=== PATIENT | male | born 1945 | race Caucasian/White ===

== ENCOUNTER → 2017-06-10 | Outpatient (CLI) | payer OTHER | LOC: BHFA 13:00 | PROVIDERS: ATTEND Internal Medicine Cardiovascular Disease | DX: M79.609 Pain in unspecified limb (principal); M79.89 Other specified soft tissue disorders ==

== ENCOUNTER 2017-09-18 08:26 | Day surgery (SDC) | payer OTHER ==
--- NOTE | 2017-09-18 09:04 | PDANEPAE ---
ANE History of Present Illness 72 year old male for EGD and colonoscopy. ANE Past Medical History - Cardiovascular History Hx Hypertension: Yes Hx Arrhythmias: No Hx Chest Pain: No Hx Coronary Artery / Peripheral Vascular Disease: Yes Hx CHF / Valvular Disease: No Hx Palpitations: No Cardiovascular History Comment: cad. cabg 4v with quiroga 04/15/12. hyperlipidemia. htn - Pulmonary History Hx COPD: No Hx Asthma/Reactive Airway Disease: Yes Hx Recent Upper Respiratory Infection: No Hx Oxygen in Use at Home: Yes Hx Sleep Apnea: Yes Sleep Apnea Screening Result - Last Documented: Positive Pulmonary History Comment: Has not used Albuterol for "long time". consuelo positive instructed pt to bring cpap to hospital - Neurologic History Hx Cerebrovascular Accident: Yes Hx Seizures: No Hx Dementia: No Neurologic History Comment: peripheral neuropathy. restless leg syndrome - Endocrine History Hx Diabetes: No Hypothyroid: No Hyperthyroid: No Obesity: mild - Renal History Hx Renal Disorders: No - Liver History Hx Hepatic Disorders: No - Neurological & Psychiatric Hx Hx Neurological and Psychiatric Disorders: No - Cancer History Hx Cancer: Yes Cancer History Comment: lymphoma-Non Hodgkins - in remission - Congenital Disorder History Hx Congenital Disorders: No - GI History Hx Gastrointestinal Disorders: No Gastrointestinal History Comment: testing due to lymphoma - Other Health History Other Health History: OA fingers. bilateral hearing aides. wears glasses - Chronic Pain History Chronic Pain: Yes (Feet) - Surgical History Prior Surgeries: L total knee 08-19-16. cabg x4 with quiroga 04/15/2012. carotid endarterectomy. eye surgery. bilateral hip arthroplasty. fonseca neurom excistion ANE Review of Systems Review of systems is: negative Review of Systems: - Exercise capacity Exercise capacity: >=4 METS METS (RN): 4 METS ANE Patient History - Allergies Allergies/Adverse Reactions: lactose intolerant Allergy (Intermediate, Uncoded 08/28/16 10:11) Diarrhea - Home Medications Home medications: home medication list seen and reviewed Home Medications: buPROPion XL [Wellbutrin 150mg XL] 300 mg PO DAILY 04/12/12 [Last Taken 05/17/12 ] Metoprolol Tartrate [Lopressor 25 mg (*)] 25 mg PO DAILY 05/17/12 [Last Taken 08:00] Gabapentin [Neurontin 300 MG (*)] 900 mg PO BID 03/29/14 [Last Taken Unknown] Losartan Potassium [Cozaar 50 mg (*)] 100 mg PO DAILY 03/29/14 [Last Taken Unknown] Fluticasone/Salmeter 500/50Mcg [Advair 500/50 (*)] 1 puffs IH BID 07/23/14 [ Last Taken Unknown] Atorvastatin Calcium [Lipitor 40 mg (*)] 80 mg PO DAILY 08/02/16 [Last Taken Unknown] clonazePAM [klonoPIN (*)] 2 mg PO HS 08/02/16 [Last Taken Unknown] Proair Hfa 08/19/17 [Last Taken Unknown] - NPO status NPO Status: no food or drink >8 hours - Anes Hx Anes Hx: no prior problems - Smoking Hx Smoking Status: Never smoked - Alcohol Use Alcohol Use: None - Family Anes Hx Family Anes Hx: neg - N/A Family Hx Anesthesia Complications: none ANE Labs/Vital Signs - Vital Signs Vital Signs: reviewed preoperatively; see RN documention for details Height: 167.64 cm Weight: 91.172 kg ANE Physical Exam - Airway Neck exam: FROM Mallampati Score: Class 3 Mouth exam: small mouth opening - Pulmonary Pulmonary: no respiratory distress - Cardiovascular Cardiovascular: regular rate and rhythym - ASA Status ASA Status: III ANE Anesthesia Plan Anesthesia Plan: GA with mask Total IV Anesthesia: Yes
[2017-09-18] MEDS ORDERED: LIDOCAINE 1% 2 ML INJ ID PRN (09:13)
[2017-09-18] MEDS ORDERED: LR 1,000 ML IV ONE (09:13)
[2017-09-18 09:23] VITALS: PULSE 60
--- NOTE | 2017-09-18 10:01 | PDGENHP ---
History and Physical - Chief Complaint screening colon, hx of lymphoma - History of Present Illness Patient due for colon cancer screening with colonoscopy. Upper endoscopy indicated to evaluate for UGI evidence of lymphoma. History Information - Allergies/Home Medication List Allergies/Adverse Reactions: lactose intolerant Allergy (Intermediate, Uncoded 08/28/16 10:11) Diarrhea Home Medications: buPROPion XL [Wellbutrin 150mg XL] 300 mg PO DAILY 04/12/12 [Last Taken 05/17/12 ] Metoprolol Tartrate [Lopressor 25 mg (*)] 25 mg PO DAILY 05/17/12 [Last Taken 08:00] Gabapentin [Neurontin 300 MG (*)] 900 mg PO BID 03/29/14 [Last Taken Unknown] Losartan Potassium [Cozaar 50 mg (*)] 100 mg PO DAILY 03/29/14 [Last Taken Unknown] Fluticasone/Salmeter 500/50Mcg [Advair 500/50 (*)] 1 puffs IH BID 07/23/14 [ Last Taken Unknown] Atorvastatin Calcium [Lipitor 40 mg (*)] 80 mg PO DAILY 08/02/16 [Last Taken Unknown] clonazePAM [klonoPIN (*)] 2 mg PO HS 08/02/16 [Last Taken Unknown] Proair Hfa 08/19/17 [Last Taken Unknown] I have personally reviewed and updated: family history, medical history, social history, surgical history - Social History Smoking Status: Never smoked Alcohol Use: None Review of Systems Review of Systems: ROS: 10pt was reviewed & negative except for what was stated in HPI & below Physical Exam Physical Exam: Constitutional: no apparent distress Eyes: PERRL Ears, Nose, Mouth, Throat: moist mucous membranes Cardiovascular: regular rate and rhythym Respiratory: no respiratory distress Gastrointestinal: normoactive bowel sounds Skin: warm Musculoskeletal: full muscle strength Neurologic: AAOx3 Assessment & Plan Assessment: 1. Screening 2. R/O lymphoma Plan: 1. Colonoscopy 2. EGD
[2017-09-18] MEDS ORDERED: PROPOFOL/EMULSION 500 MG/50 ML BOTTLE IV ONE (10:05)
[2017-09-18] MEDS ORDERED: LR 500 ML IV PRN (10:21)
[2017-09-18] MEDS ORDERED: ONDANSETRON 4 MG/2 ML VIAL IVP PRN (10:21)
[2017-09-18] MEDS ORDERED: fentaNYL 100 MCG/2 ML INJ IVP PRN (10:21)
[2017-09-18] MEDS ORDERED: NALOXONE HCL 0.4 MG/ML INJ IVP PRN (10:21)
--- NOTE | 2017-09-18 10:35 | GIREPORT ---
[facility] Surgical Services - Endoscopy Department Patient Name: Jason Trevino Procedure Date: 09/18/2017 10:10 AM Patient Type: Outpatient Attending MD/ ER Physician: Aneudy Mack MD Procedure: Upper GI endoscopy Indications: Epigastric abdominal pain Providers: Aneudy Mack MD Medicines: Sedation Administered by an Anesthesia Professional Complications: No immediate complications. Description of Procedure: After obtaining informed consent, the endoscope was passed under direct vision. Throughout the procedure, the patient's blood pressure, pulse, and oxygen saturations were monitored continuously. The Endoscope was intro duced through the mouth, and advanced to the second part of duodenum. [facility] endoscopy was accomplished without difficulty. The patient tolerated th e procedure well. Findings: The Z-line was irregular and was found at the gastroesophageal junction . Biopsies were taken with a cold forceps for histology. Diffuse mild inflammation characterized by congestion (edema) and eryth gagandeep was found in the entire examined stomach. Biopsies were taken with a co ld forceps for histology. The examined duodenum was normal. Biopsies were taken with a cold force ps for histology. Estimated Blood Loss: Estimated blood loss: none. Post Op Diagnosis: - Z-line irregular, at the gastroesophageal junction. Biopsied. - Gastritis. Biopsied. - Normal examined duodenum. Biopsied. Recommendation: - Written discharge instructions were provided to the patient. - The signs and symptoms of potential delayed complications were discus sed with the patient. - Patient has a contact number available for emergencies. - Return to normal activities tomorrow. - Resume previous diet. - Continue present medications. - Await pathology results. Attending Participation: I personally performed the entire procedure. Aneudy Mack MD Aneudy Mack MD 09/18/2017 10:34:54 AM This report has been signed electronicallyDaus Frederick MD Number of Addenda: 0 Note Initiated On: 09/18/2017 10:10 AM [email or web address]
--- NOTE | 2017-09-18 10:37 | GIREPORT ---
[facility] Surgical Services - Endoscopy Department Patient Name: Jason Trevino Procedure Date: 09/18/2017 10:20 AM Patient Type: Outpatient Attending / ER Physician: Aneudy Mack MD Procedure: Colonoscopy Indications: Screening for colorectal malignant neoplasm Providers: Aneudy Mack MD Medicines: Sedation Administered by an Anesthesia Professional Complications: No immediate complications. Description of Procedure: After obtaining informed consent, the scope was passed under direct vis ion. Throughout the procedure, the patient's blood pressure, pulse, and oxyg en saturations were monitored continuously. The Colonoscope with irrigatio n channel was introduced through the anus and advanced to the cecum, identified by appendiceal orifice and ileocecal valve. The colonoscopy was performed without difficulty. The patient tolerated the procedure well. The quality of the bowel preparation was good. The ileocecal valve, appendi ceal orifice, and rectum were photographed. Findings: The entire examined colon appeared normal. One small submucosal nodule was found in the sigmoid colon. Biopsies we re taken with a cold forceps for histology. Estimated Blood Loss: Estimated blood loss: none. Estimated blood loss: none. Post Op Diagnosis: - The entire examined colon is normal. - Submucosal nodule in the sigmoid colon. Biopsied. Suspect sumucosal l ipoma. Recommendation: - Written discharge instructions were provided to the patient. - The signs and symptoms of potential delayed complications were discus sed with the patient. - Patient has a contact number available for emergencies. - Return to normal activities tomorrow. - Repeat colonoscopy in 10 years for screening purposes. - Await pathology results. Attending Participation: I personally performed the entire procedure. Aneudy Mack MD Aneudy Mack MD 09/18/2017 10:36:51 AM This report has been signed electronicallyDaus Frederick MD Number of Addenda: 0 Note Initiated On: 09/18/2017 10:20 AM Total Procedure Duration Time 0 hours 13 minutes 23 seconds [email or web address]
[2017-09-18 10:46] VITALS: TEMP 97.3
[2017-09-18 11:36] VITALS: BP 148/73; RESP 20; O2SAT 98
--- NOTE | 2017-09-18 16:26 | POSTANESTH ---
Post Anesthetic Evaluation Cardiovascular Status: Normal, Stable, Similar to Pre-Op Cond Respiratory Status: Normal, Stable, Similar to Pre-op Cond. Level of Consciousness/Mental Status: Can Participate in Eval, Alert and Oriented Pain Control: Adequate, Prn Tx Ordered Nausea/Vomiting Control: Adequate, Prn Tx Ordered Complications Possibly Related to Anesthesia: None Noted
== END 2017-09-18 11:53 | disposition home or self-care (01) ==
LOC: FSGY 08:26
PROVIDERS: ATTEND Internal Medicine Gastroenterology
DX: Z12.11 Encounter for screening for malignant neoplasm of colon (principal); K22.9 Disease of esophagus, unspecified; C85.90 Non-Hodgkin lymphoma, unspecified, unspecified site; I25.10 Atherosclerotic heart disease of native coronary artery without angina pectoris; G47.33 Obstructive sleep apnea (adult) (pediatric); J45.909 Unspecified asthma, uncomplicated; E78.5 Hyperlipidemia, unspecified; I10 Essential (primary) hypertension; G25.81 Restless legs syndrome; G62.9 Polyneuropathy, unspecified; Z86.73 Personal history of transient ischemic attack (TIA), and cerebral infarction without residual deficits; Z95.1 Presence of aortocoronary bypass graft; Z96.652 Presence of left artificial knee joint; Z96.643 Presence of artificial hip joint, bilateral
CPT/HCPCS: J2704

== ENCOUNTER → 2018-07-09 | Outpatient (CLI) | payer OTHER | LOC: CIMAGING 12:40 | PROVIDERS: ATTEND Internal Medicine | DX: Z03.89 Encounter for observation for other suspected diseases and conditions ruled out (principal); Z86.79 Personal history of other diseases of the circulatory system | CPT/HCPCS: 93880-PO ==

== ENCOUNTER 2018-09-26 13:40 | Emergency (ER) | payer OTHER ==
--- NOTE | 2018-09-26 15:00 | EDPHY ---
H & P Stated Complaint: dizziness Time Seen by Provider: 09/26/18 13:55 HPI/ROS: This patient had an episode of dizziness 11:00 a.m. During an argument with his while driving. He describes this as primarily lightheadedness. He has had these"dizzy attacks"on off for the past 2 years. This episode was slightly worsened some of them prompting his visit for workup. The dizziness is now nearly resolved. He denies any other significant acute symptoms. Notes no exacerbating factors. He is accompanied by his son who drove him in by private vehicle. ROS: Constitutional: No fevers or chills HEENT: Mild coryza over the past couple days. Otherwise negative except chronic tinnitus Neuro: No headache. No focal numbness tingling weakness other than mild chronic symptoms post stroke and chronic paresthesias to lower extremities from neuropathy. No acute confusion Pulmonary: No dyspnea or cough. Cardiovascular: No heart palpitations. He has chronic leg edema with no recent change. He denies any posterior calf pain GI: No abdominal pain, nausea or bowl read. Reports normal bowel movements. : No symptoms Integumentary: No pallor or diaphoresis. No rash. Endocrine: No polyuria or polydipsia. 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 VT/quadruple cardiac bypass, 2012. TIA's. torn retina, peripheral neuropathy. Chronic dependent edema bilateral lower extremities - Social History Smoking Status: Never smoked Alcohol Use: Rarely Drug Use: None - Physical Exam Exam: General Appearance: Alert, no distress. Eyes: Pupils equal and round no pallor or injection. ENT, Mouth: Mucous membranes moist. Neck: Supple Respiratory: There are no retractions, lungs are clear to auscultation. Cardiovascular: Regular rate and rhythm. Gastrointestinal: Abdomen is soft and nontender, no masses, bowel sounds normal. Neurological: GCS 15. Cranial nerves 2-12 grossly intact. Head movement does not elicit significant vertiginous symptoms. Appreciate no nystagmus. Skin: Warm and dry, no rashes. Musculoskeletal: Neck is supple nontender. Extremities are symmetrical, full range of motion. Psychiatric: Mood and affect are normal DIFFERENTIAL DIAGNOSIS: After history and physical exam differential diagnosis was considered for anxiety, peripheral vertigo, pulmonary embolism, myocardial ischemic disease Constitutional: Initial Vital Signs Temperature (C) 37.2 C 09/26/18 13:51 Heart Rate 70 09/26/18 13:51 Respiratory Rate 16 09/26/18 13:51 Blood Pressure 155/82 H 09/26/18 13:51 O2 Sat (%) 92 09/26/18 13:51 O2 Delivery Mode Room Air Allergies/Adverse Reactions: lactose intolerant Allergy (Intermediate, Uncoded 08/28/16 10:11) Diarrhea Home Medications: Medication Instructions Recorded buPROPion XL [Wellbutrin 150mg XL] 300 mg PO DAILY 04/12/12 Metoprolol Tartrate [Lopressor 25 25 mg PO DAILY 05/17/12 mg (*)] Gabapentin [Neurontin 300 MG (*)] 900 mg PO BID 03/29/14 Losartan Potassium [Cozaar 50 mg 100 mg PO DAILY 03/29/14 (*)] Fluticasone/Salmeter 500/50Mcg 1 puffs IH BID 07/23/14 [Advair 500/50 (*)] Atorvastatin Calcium [Lipitor 40 80 mg PO DAILY 08/02/16 mg (*)] clonazePAM [klonoPIN (*)] 2 mg PO HS 08/02/16 Proair Hfa 08/19/17 Aspirin [Aspirin 325 mg (*)] 325 mg PO DAILY AT 10AM 09/18/17 Medical Decision Making - Diagnostics EKG Interpretation: 12 lead EKG performed shortly after arrival at 2:14 p.m. Indication dizziness with history of coronary disease-rule out acute ischemic disease Sinus rhythm at 69 Intervals: P R of 169, QRS of 90, QTC of 4 3 Surprise: P of 57, QRS of 12, T of 2 Overall assessment sinus rhythm with early R-wave transition anteriorly. Otherwise normal. No acute ST abnormalities are appreciated. ED Course/Re-evaluation: Patient remained stable. He is placed on a monitor. Lab results: D-dimer less than 100. Other labs pending Patient's chemistries are normal. Troponin is normal. EKG without acute abnormalities Discussion: Patient with episode of dizziness similar to prior episodes of dizziness well emotionally upset without evidence of acute coronary syndrome, pulmonary embolism, acute stroke or other concerning red flag findings. However the patient understands the need to return emergency department should he develop any worsening of symptoms - Data Points Laboratory Results: Laboratory Results 09/26/18 14:25 Point of Care Test Results: Chemistry 09/26/18 09/26/18 15:00 14:34 POC Sodium 137 mEq/L mEq/L (135-145) POC Potassium 3.9 mEq/L mEq/L (3.3-5.0) POC Chloride 98 mEq/L mEq/L (97-110) POC BUN 19 mg/dL mg/dL (7-23) POC Creatinine 1.2 mg/dL mg/dL (0.7-1.3) POC Glucose 87 mg/dL mg/dL (70-100) POC Troponin I 0.01 ng/mL ng/mL (0.00-0.08) ISTAT H&H 09/26/18 15:00 POC Hgb 18.7 gm/dL H gm/dL (13.7-17.5) POC Hct 55 % H % (40-51) D-Dimer D-Dimer Collection Date 09/26/18 D-Dimer Collection Time 14:25 D-Dimer (ng/ml) 100 Departure - Departure Disposition: Home, Routine, Self-Care Clinical Impression: Dizziness Condition: Good Instructions: Dizziness (ED) Additional Instructions: Diagnosis: Dizziness Your EKG and labs look normal today. Plan: Continue current medications Follow up with primary care physician and/or director of community education for any ongoing symptoms. Return for any significant recurrence of symptoms. Referrals: Nenita Gipson MD [Primary Care Provider] - As per Instructions
--- NOTE | 2018-09-26 15:20 | CPEKG ---
Test Reason : OPEN Blood Pressure : / mmHG Vent. Rate : 069 BPM Atrial Rate : 069 BPM P-R Int : 169 ms QRS Dur : 090 ms QT Int : 376 ms P-R-T Axes : 057 012 002 degrees QTc Int : 403 ms Sinus rhythm Atrial premature complexes Abnormal R-wave progression, early transition Confirmed by Bert Bergman ([id number]) on 09/26/2018 3:20:27 PM Referred By: Confirmed By:Bert Bergman
[2018-09-26 16:22] VITALS: BP 156/78
[2018-09-26 16:59] LABS: PLATELET COUNT 168 10^3/uL (150-400)
== END 2018-09-26 16:21 | disposition home or self-care (01) ==
LOC: CED 13:40
DX: R42 Dizziness and giddiness (principal)
CPT/HCPCS: 82435-PO; 82565-PO; 82947-PO; 84132-PO; 84295-PO; 84484-PO; 84520-PO; 85014-PO

== ENCOUNTER → 2019-01-20 | Outpatient (CLI) | payer BC, OTHER | LOC: FCPNEURO 21:30 | PROVIDERS: ATTEND Psychiatry & Neurology Sleep Medicine | DX: G47.39 Other sleep apnea (principal) ==